=== PATIENT | male | born 1975 | race Caucasian/White ===

== ENCOUNTER → 2016-09-14 | Outpatient (REF) | payer BC ==
[2016-09-14 11:42] LABS: ALBUMIN 3.5 GM/DL (3.2-5.2); ALBUMIN/GLOBULIN RATIO 1.06 (1.00-1.93); ALKALINE PHOSPHATASE 51 U/L (45-117); ALT/SGPT 27 U/L (12-78); ANION GAP 4 MEQ/L (8-16); AST/SGOT 16 U/L (15-37); BILIRUBIN,TOTAL 0.3 MG/DL (0.2-1.0); BLOOD UREA NITROGEN 18 MG/DL (7-18); CALCIUM LEVEL 8.7 MG/DL (8.5-10.1); CARBON DIOXIDE LEVEL 32 MEQ/L (21-32); CHLORIDE LEVEL 109 MEQ/L (98-107); CHOLESTEROL LEVEL 205 MG/DL (<200); CREATININE FOR GFR 1.03 MG/DL (0.70-1.30); GLOMERULAR FILTRATION RATE > 60.0 (>60); GLUCOSE, FASTING 75 MG/DL (70-105); SODIUM LEVEL 145 MEQ/L (136-145); TOTAL PROTEIN 6.8 GM/DL (6.4-8.2); TRIGLYCERIDES LEVEL 150 MG/DL (<150)
[2016-09-14 11:45] LABS: POTASSIUM SERUM 5.3 MEQ/L (3.5-5.1)
== END ==
LOC: M SFHCPLAZ 08:41
PROVIDERS: ATTEND Physician Assistant
DX: I10 Essential (primary) hypertension (principal); E78.5 Hyperlipidemia, unspecified

== ENCOUNTER → 2017-06-07 | Outpatient (REF) | payer OTHER ==
[2017-06-07 12:03] LABS: APPEARANCE, URINE CLEAR (CLEAR); BACTERIA, URINE AUTO NEGATIVE (NEGATIVE); BILIRUBIN, URINE AUTO NEGATIVE (NEGATIVE); BLOOD, URINE BLOOD 1+ (NEGATIVE); COLOR, URINE YELLOW (YELLOW); GLUCOSE, URINE (UA) AUTO NEGATIVE (NEGATIVE); KETONE, URINE AUTO NEGATIVE (NEGATIVE); LEUKOCYTE ESTERASE, URINE AUTO NEGATIVE (NEGATIVE); MUCUS, URINE SMALL (NEGATIVE); NITRITE, URINE AUTO NEGATIVE (NEGATIVE); PROTEIN, URINE AUTO NEGATIVE (NEGATIVE); RBC, URINE AUTO 4 /HPF (0-3); SPECIFIC GRAVITY URINE AUTO 1.018 (1.002-1.035); SQUAMOUS EPITHELIAL CELL UR AU 1 /HPF (0-6); UROBILINOGEN, URINE AUTO 0.2 mg/dL (0.0-2.0); WBC, URINE AUTO 1 /HPF (0-3)
[2017-06-07 12:34] LABS: ANION GAP 6 MEQ/L (8-16); BLOOD UREA NITROGEN 16 MG/DL (7-18); CALCIUM LEVEL 8.5 MG/DL (8.5-10.1); CARBON DIOXIDE LEVEL 29 MEQ/L (21-32); CHLORIDE LEVEL 107 MEQ/L (98-107); GLOMERULAR FILTRATION RATE > 60.0 (>60); GLUCOSE, FASTING 83 MG/DL (70-100); POTASSIUM SERUM 4.6 MEQ/L (3.5-5.1); SODIUM LEVEL 142 MEQ/L (136-145)
[2017-06-07 12:38] LABS: ESTIMATED AVERAGE GLUCOSE 114 MG/DL (60-110); HEMOGLOBIN A1c 5.6 %
== END ==
LOC: M SFHCPLAZ 07:54
DX: E66.01 Morbid (severe) obesity due to excess calories (principal); I10 Essential (primary) hypertension; R89.9 Unspecified abnormal finding in specimens from other organs, systems and tissues

== ENCOUNTER → 2017-06-28 | Outpatient (CLI) | payer OTHER ==
[2017-06-28 16:58] LABS: PROTHROMBIN TIME 15.5 SECONDS (12.4-14.5)
== END ==
LOC: M WUC 14:52
DX: I26.09 Other pulmonary embolism with acute cor pulmonale (principal); I82.432 Acute embolism and thrombosis of left popliteal vein
CPT/HCPCS: 85610

== ENCOUNTER → 2017-07-09 | Outpatient (CLI) | payer OTHER ==
[2017-07-09 17:21] LABS: INR 1.58; PROTHROMBIN TIME 19.3 SECONDS (12.4-14.5)
== END ==
LOC: M WUC 10:54
DX: I26.09 Other pulmonary embolism with acute cor pulmonale (principal); I82.432 Acute embolism and thrombosis of left popliteal vein
CPT/HCPCS: 85610

== ENCOUNTER → 2017-07-19 | Outpatient (CLI) | payer OTHER ==
[2017-07-19 17:18] LABS: INR 1.63; PROTHROMBIN TIME 19.8 SECONDS (12.4-14.5)
== END ==
LOC: M WUC 15:25
DX: I26.09 Other pulmonary embolism with acute cor pulmonale (principal); I82.432 Acute embolism and thrombosis of left popliteal vein

== ENCOUNTER → 2017-07-19 | Outpatient (CLI) | payer OTHER ==
[2017-07-19 17:22] LABS: ANION GAP 4 MEQ/L (8-16); BLOOD UREA NITROGEN 20 MG/DL (7-18); CALCIUM LEVEL 9.2 MG/DL (8.5-10.1); CARBON DIOXIDE LEVEL 31 MEQ/L (21-32); CHLORIDE LEVEL 107 MEQ/L (98-107); CREATININE FOR GFR 1.05 MG/DL (0.70-1.30); GLOMERULAR FILTRATION RATE > 60.0 (>60); GLUCOSE, FASTING 84 MG/DL (70-100); SODIUM LEVEL 142 MEQ/L (136-145)
[2017-07-19 17:46] LABS: BASO % 0.5 % (0.0-1.0); EOS # 0.2 10^3/uL (0.0-0.50); HEMATOCRIT 45.8 % (42.0-52.0); HEMOGLOBIN 15.5 g/dl (14.0-18.0); IMMATURE GRANULOCYTE % 0.4 % (0-3.0); LYMPH # 1.8 10^3/uL (1.5-4.5); MEAN CORPUSCULAR HGB CONC 33.8 g/dl (32.0-36.5); MEAN CORPUSCULAR VOLUME 88.6 fl (80.0-96.0); MONO # 0.5 10^3/uL (0.0-0.8); MONO % 6.9 % (0.0-5.0); NEUTROPHILS # 4.8 10^3/uL (1.8-7.7); NEUTROPHILS % 65.2 % (36.0-66.0); PLATELET COUNT, AUTOMATED 237 10^3/uL (150-450); RED BLOOD COUNT 5.17 10^6/uL (4.30-6.10); WHITE BLOOD COUNT 7.4 10^3/uL (4.0-10.0)
== END ==
LOC: M WUC 15:29
DX: I26.99 Other pulmonary embolism without acute cor pulmonale (principal)

== ENCOUNTER → 2017-07-26 | Outpatient (CLI) | payer OTHER ==
[2017-07-26 18:50] LABS: INR 1.63; PROTHROMBIN TIME 19.8 SECONDS (12.4-14.5)
== END ==
LOC: M WUC 11:29
DX: I26.09 Other pulmonary embolism with acute cor pulmonale (principal); I82.432 Acute embolism and thrombosis of left popliteal vein
CPT/HCPCS: 85610

== ENCOUNTER → 2017-08-11 | Outpatient (CLI) | payer OTHER | LOC: M RAD 12:52 | DX: M79.605 Pain in left leg (principal); Z86.711 Personal history of pulmonary embolism; Z86.718 Personal history of other venous thrombosis and embolism | CPT/HCPCS: 93971 ==

== ENCOUNTER → 2017-08-16 | Outpatient (CLI) | payer OTHER ==
[2017-08-16 15:32] LABS: INR 1.94; PROTHROMBIN TIME 22.8 SECONDS (12.4-14.5)
== END ==
LOC: M WUC 11:25
DX: I26.09 Other pulmonary embolism with acute cor pulmonale (principal); I82.432 Acute embolism and thrombosis of left popliteal vein

== ENCOUNTER → 2017-08-23 | Outpatient (CLI) | payer OTHER ==
[2017-08-23 16:53] LABS: INR 1.25; PROTHROMBIN TIME 15.9 SECONDS (12.4-14.5)
== END ==
LOC: M WUC 11:56
DX: I26.09 Other pulmonary embolism with acute cor pulmonale (principal); I82.432 Acute embolism and thrombosis of left popliteal vein
CPT/HCPCS: 85610

== ENCOUNTER → 2017-08-30 | Outpatient (CLI) | payer OTHER ==
[2017-08-30 12:41] LABS: PROTHROMBIN TIME 16.4 SECONDS (12.4-14.5)
== END ==
LOC: M WUC 09:40
DX: I26.09 Other pulmonary embolism with acute cor pulmonale (principal)

== ENCOUNTER → 2017-09-13 | Outpatient (CLI) | payer OTHER ==
[2017-09-13 11:41] LABS: INR 1.68; PROTHROMBIN TIME 20.3 SECONDS (12.4-14.5)
== END ==
LOC: M WUC 09:52
DX: Z51.81 Encounter for therapeutic drug level monitoring (principal); Z79.01 Long term (current) use of anticoagulants; I26.09 Other pulmonary embolism with acute cor pulmonale; I82.432 Acute embolism and thrombosis of left popliteal vein
CPT/HCPCS: 85610

== ENCOUNTER → 2017-09-21 | Outpatient (CLI) | payer OTHER ==
[2017-09-21 12:46] LABS: PROTHROMBIN TIME 20.5 SECONDS (12.4-14.5)
== END ==
LOC: M WUC 10:01
DX: Z51.81 Encounter for therapeutic drug level monitoring (principal); Z79.01 Long term (current) use of anticoagulants; I26.09 Other pulmonary embolism with acute cor pulmonale; I82.432 Acute embolism and thrombosis of left popliteal vein
CPT/HCPCS: 85610

== ENCOUNTER → 2017-10-04 | Outpatient (CLI) | payer OTHER ==
[2017-10-04 11:42] LABS: INR 1.66; PROTHROMBIN TIME 20.1 SECONDS (12.4-14.5)
== END ==
LOC: M WUC 08:59
DX: Z51.81 Encounter for therapeutic drug level monitoring (principal); Z79.01 Long term (current) use of anticoagulants; I26.09 Other pulmonary embolism with acute cor pulmonale; I82.432 Acute embolism and thrombosis of left popliteal vein
CPT/HCPCS: 85610

== ENCOUNTER → 2017-11-01 | Outpatient (CLI) | payer OTHER ==
[2017-11-01 17:54] LABS: INR 2.01; PROTHROMBIN TIME 23.2 SECONDS (12.1-14.4)
== END ==
LOC: M WUC 14:57
DX: Z51.81 Encounter for therapeutic drug level monitoring (principal); Z79.01 Long term (current) use of anticoagulants; I26.09 Other pulmonary embolism with acute cor pulmonale; I82.432 Acute embolism and thrombosis of left popliteal vein
CPT/HCPCS: 85610

== ENCOUNTER → 2017-11-11 | Outpatient (CLI) | payer OTHER | LOC: M WUC 10:28 | DX: M25.562 Pain in left knee (principal) | CPT/HCPCS: 73564 ==

== ENCOUNTER → 2017-11-11 | Outpatient (CLI) | payer OTHER ==
[2017-11-11 13:12] LABS: INR 1.54; PROTHROMBIN TIME 18.7 SECONDS (12.1-14.4)
== END ==
LOC: M WUC 10:34
DX: I26.09 Other pulmonary embolism with acute cor pulmonale (principal)
CPT/HCPCS: 85610

== ENCOUNTER → 2017-11-29 | Outpatient (CLI) | payer OTHER ==
[2017-11-29 13:03] LABS: INR 2.23; PROTHROMBIN TIME 25.1 SECONDS (12.1-14.4)
== END ==
LOC: M WUC 10:18
DX: I26.09 Other pulmonary embolism with acute cor pulmonale (principal); I82.432 Acute embolism and thrombosis of left popliteal vein; Z79.01 Long term (current) use of anticoagulants
CPT/HCPCS: 85610

== ENCOUNTER → 2018-01-31 | Outpatient (CLI) | payer OTHER | LOC: M RAD 10:29 | DX: Z86.718 Personal history of other venous thrombosis and embolism (principal); Z86.711 Personal history of pulmonary embolism | CPT/HCPCS: 93971 ==

== ENCOUNTER → 2018-01-31 | Outpatient (CLI) | payer OTHER ==
[2018-01-31 12:57] LABS: INR 1.86; PROTHROMBIN TIME 21.8 SECONDS (12.1-14.4)
== END ==
LOC: M WUC 11:13
DX: Z51.81 Encounter for therapeutic drug level monitoring (principal); Z79.01 Long term (current) use of anticoagulants; I26.09 Other pulmonary embolism with acute cor pulmonale; I82.432 Acute embolism and thrombosis of left popliteal vein
CPT/HCPCS: 85610

== ENCOUNTER → 2018-02-21 | Outpatient (CLI) | payer OTHER ==
[2018-02-21 12:54] LABS: INR 2.14; PROTHROMBIN TIME 24.3 SECONDS (12.1-14.4)
== END ==
LOC: M WUC 10:50
DX: Z86.711 Personal history of pulmonary embolism (principal)

== ENCOUNTER → 2018-02-28 | Outpatient (CLI) | payer OTHER | LOC: M WUC 14:10 | DX: Z51.81 Encounter for therapeutic drug level monitoring (principal); Z79.01 Long term (current) use of anticoagulants; Z86.711 Personal history of pulmonary embolism | CPT/HCPCS: 85610 ==

== ENCOUNTER → 2018-03-07 | Outpatient (CLI) | payer OTHER ==
[2018-03-07 17:31] LABS: INR 2.24; PROTHROMBIN TIME 25.2 SECONDS (12.1-14.4)
== END ==
LOC: M WUC 10:56
DX: Z51.81 Encounter for therapeutic drug level monitoring (principal); Z79.01 Long term (current) use of anticoagulants; Z86.711 Personal history of pulmonary embolism
CPT/HCPCS: 85610

== ENCOUNTER → 2018-03-07 | Outpatient (CLI) | payer OTHER ==
[2018-03-07 17:12] LABS: BASO % 0.5 % (0.0-1.0); EOS # 0.1 10^3/uL (0.0-0.50); EOS % 1.5 % (0.0-3.0); HEMATOCRIT 45.5 % (42.0-52.0); HEMOGLOBIN 14.7 g/dl (13.5-17.5); IMMATURE GRANULOCYTE % 0.3 % (0-3.0); LYMPH # 1.4 10^3/uL (1.5-4.5); LYMPH % 20.4 % (24.0-44.0); MEAN CORPUSCULAR HEMOGLOBIN 29.6 pg (27.0-33.0); MEAN CORPUSCULAR HGB CONC 32.3 g/dl (32.0-36.5); MEAN CORPUSCULAR VOLUME 91.5 fl (80.0-96.0); MONO # 0.5 10^3/uL (0.0-0.8); MONO % 7.3 % (0.0-5.0); NEUTROPHILS # 4.6 10^3/uL (1.8-7.7); PLATELET COUNT, AUTOMATED 231 10^3/uL (150-450); RED BLOOD COUNT 4.97 10^6/uL (4.30-6.10); RED CELL DISTRIBUTION WIDTH 12.6 % (11.5-14.5); WHITE BLOOD COUNT 6.6 10^3/uL (4.0-10.0)
[2018-03-07 17:26] LABS: ALBUMIN 3.7 GM/DL (3.2-5.2); ALBUMIN/GLOBULIN RATIO 1.06 (1.00-1.93); ALKALINE PHOSPHATASE 42 U/L (45-117); ALT/SGPT 24 U/L (12-78); ANION GAP 7 MEQ/L (8-16); AST/SGOT 13 U/L (7-37); BILIRUBIN,TOTAL 0.4 MG/DL (0.2-1.0); BLOOD UREA NITROGEN 23 MG/DL (7-18); CALCIUM LEVEL 8.4 MG/DL (8.5-10.1); CARBON DIOXIDE LEVEL 29 MEQ/L (21-32); CHLORIDE LEVEL 103 MEQ/L (98-107); CHOLESTEROL LEVEL 220 MG/DL (<200); CHOLESTEROL RISK RATIO 6.111 (<5); CREATININE FOR GFR 1.04 MG/DL (0.70-1.30); FREE T4 1.37 NG/DL (0.76-1.46); GLOMERULAR FILTRATION RATE > 60.0 (>60); GLUCOSE, FASTING 75 MG/DL (70-100); HDL CHOLESTEROL 36 MG/DL (>40); LDL CHOLESTEROL 165 MG/DL (<100); NON-HDL-C 184 MG/DL; POTASSIUM SERUM 4.5 MEQ/L (3.5-5.1); SODIUM LEVEL 139 MEQ/L (136-145); TOTAL PROTEIN 7.2 GM/DL (6.4-8.2); TRIGLYCERIDES LEVEL 94 MG/DL (<150)
== END ==
LOC: M WUC 11:00
DX: I26.99 Other pulmonary embolism without acute cor pulmonale (principal); E66.01 Morbid (severe) obesity due to excess calories
CPT/HCPCS: 84443

== ENCOUNTER → 2018-03-20 | Outpatient (CLI) | payer OTHER ==
[2018-03-20 17:32] LABS: INR 3.21; PROTHROMBIN TIME 33.6 SECONDS (12.1-14.4)
== END ==
LOC: M WUC 10:15
DX: Z86.711 Personal history of pulmonary embolism (principal); Z79.01 Long term (current) use of anticoagulants
CPT/HCPCS: 85610

== ENCOUNTER → 2018-03-23 | Outpatient (CLI) | payer OTHER | LOC: M SMT 14:20 | DX: J12.9 Viral pneumonia, unspecified (principal) | CPT/HCPCS: 71046 ==

== ENCOUNTER → 2018-04-11 | Outpatient (CLI) | payer OTHER ==
[~2018-04-11] MED LIST: AZIT-10 PO; AZIT-12; COUM7.5T PO; IBUPOTC PO; LISI10TA4; LISI10TA4 PO; LOVE0.8I SC; NASA1SPR; VENTAER; VENTAER INH
[2018-04-11 12:51] LABS: INR 2.43; PROTHROMBIN TIME 26.9 SECONDS (12.1-14.4)
== END ==
LOC: M WUC 09:20
PROVIDERS: ATTEND Surgery Vascular Surgery
DX: Z86.711 Personal history of pulmonary embolism (principal); Z79.01 Long term (current) use of anticoagulants

== ENCOUNTER → 2018-05-02 | Outpatient (CLI) | payer OTHER ==
[2018-05-02 13:19] LABS: INR 3.37; PROTHROMBIN TIME 34.8 SECONDS (12.1-14.4)
== END ==
LOC: M WUC 09:48
PROVIDERS: ATTEND Surgery Vascular Surgery
DX: Z86.711 Personal history of pulmonary embolism (principal); Z79.01 Long term (current) use of anticoagulants

== ENCOUNTER → 2018-05-09 | Outpatient (CLI) | payer OTHER ==
[2018-05-09 12:48] LABS: INR 4.35; PROTHROMBIN TIME 42.7 SECONDS (12.1-14.4)
== END ==
LOC: M WUC 09:50
PROVIDERS: ATTEND Surgery Vascular Surgery
DX: Z51.81 Encounter for therapeutic drug level monitoring (principal); Z79.01 Long term (current) use of anticoagulants; Z86.711 Personal history of pulmonary embolism

== ENCOUNTER → 2018-05-17 | Outpatient (REF) | payer OTHER ==
[2018-05-17 12:45] LABS: INR 2.89; PROTHROMBIN TIME 30.9 SECONDS (12.1-14.4)
== END ==
LOC: M LABWUC 11:52
PROVIDERS: ATTEND Surgery Vascular Surgery
DX: Z86.711 Personal history of pulmonary embolism (principal)

== ENCOUNTER → 2018-05-30 | Outpatient (CLI) | payer OTHER ==
[2018-05-30 16:00] LABS: INR 2.69; PROTHROMBIN TIME 29.2 SECONDS (12.1-14.4)
== END ==
LOC: M WUC 10:40
PROVIDERS: ATTEND Surgery Vascular Surgery
DX: Z86.711 Personal history of pulmonary embolism (principal)

== ENCOUNTER → 2018-06-06 | Outpatient (CLI) | payer OTHER ==
[2018-06-06 13:45] LABS: BASO % 0.4 % (0.0-1.0); EOS # 0.2 10^3/uL (0.0-0.50); EOS % 2.2 % (0.0-3.0); HEMATOCRIT 44.3 % (42.0-52.0); HEMOGLOBIN 14.4 g/dl (13.5-17.5); LYMPH # 1.6 10^3/uL (1.5-4.5); LYMPH % 22.2 % (24.0-44.0); MEAN CORPUSCULAR HEMOGLOBIN 29.4 pg (27.0-33.0); MEAN CORPUSCULAR HGB CONC 32.5 g/dl (32.0-36.5); MEAN CORPUSCULAR VOLUME 90.4 fl (80.0-96.0); MONO # 0.5 10^3/uL (0.0-0.8); MONO % 7.6 % (0.0-5.0); NEUTROPHILS # 4.7 10^3/uL (1.8-7.7); NEUTROPHILS % 67.3 % (36.0-66.0); PLATELET COUNT, AUTOMATED 222 10^3/uL (150-450)
[2018-06-06 13:55] LABS: INR 3.61; PROTHROMBIN TIME 36.8 SECONDS (12.1-14.4)
[2018-06-06 14:16] LABS: ALBUMIN 3.7 GM/DL (3.2-5.2); ALT/SGPT 26 U/L (12-78); BILIRUBIN,TOTAL 0.2 MG/DL (0.2-1.0); BLOOD UREA NITROGEN 26 MG/DL (7-18); CALCIUM LEVEL 8.9 MG/DL (8.5-10.1); CARBON DIOXIDE LEVEL 30 MEQ/L (21-32); CHLORIDE LEVEL 104 MEQ/L (98-107); CHOLESTEROL LEVEL 268 MG/DL (<200); CHOLESTEROL RISK RATIO 5.153 (<5); CREATININE FOR GFR 1.06 MG/DL (0.70-1.30); FREE T4 1.08 NG/DL (0.76-1.46); GLOMERULAR FILTRATION RATE > 60.0 (>60); GLUCOSE, FASTING 85 MG/DL (70-100); HDL CHOLESTEROL 52 MG/DL (>40); LDL CHOLESTEROL 199 MG/DL (<100); NON-HDL-C 216 MG/DL; POTASSIUM SERUM 5.6 MEQ/L (3.5-5.1); SODIUM LEVEL 138 MEQ/L (136-145); TOTAL PROTEIN 7.3 GM/DL (6.4-8.2); TRIGLYCERIDES LEVEL 87 MG/DL (<150)
== END ==
LOC: M WUC 10:40
PROVIDERS: ATTEND Family Medicine
DX: I26.99 Other pulmonary embolism without acute cor pulmonale (principal); I10 Essential (primary) hypertension; E66.01 Morbid (severe) obesity due to excess calories

== ENCOUNTER → 2018-06-27 | Outpatient (CLI) | payer OTHER ==
[2018-06-27 10:45] LABS: INR 2.66; PROTHROMBIN TIME 28.9 SECONDS (12.1-14.4)
== END ==
LOC: M WUC 09:46
PROVIDERS: ATTEND Family Medicine
DX: Z51.81 Encounter for therapeutic drug level monitoring (principal); Z79.01 Long term (current) use of anticoagulants; I26.99 Other pulmonary embolism without acute cor pulmonale

== ENCOUNTER → 2018-07-18 | Outpatient (CLI) | payer OTHER ==
[2018-07-18 12:34] LABS: INR 2.64; PROTHROMBIN TIME 28.7 SECONDS (12.1-14.4)
== END ==
LOC: M WUC 09:56
PROVIDERS: ATTEND Surgery Vascular Surgery
DX: Z79.01 Long term (current) use of anticoagulants (principal); Z86.711 Personal history of pulmonary embolism

== ENCOUNTER → 2018-08-01 | Outpatient (CLI) | payer OTHER ==
[2018-08-01 12:36] LABS: INR 3.06; PROTHROMBIN TIME 32.3 SECONDS (12.1-14.4)
== END ==
LOC: M WUC 09:07
PROVIDERS: ATTEND Family Medicine
DX: I26.99 Other pulmonary embolism without acute cor pulmonale (principal); Z79.01 Long term (current) use of anticoagulants

== ENCOUNTER → 2018-10-03 | Outpatient (CLI) | payer OTHER ==
[2018-10-03 13:47] LABS: INR 3.02
== END ==
LOC: M WUC 09:56
PROVIDERS: ATTEND Family Medicine
DX: I26.99 Other pulmonary embolism without acute cor pulmonale (principal); Z79.01 Long term (current) use of anticoagulants

== ENCOUNTER → 2018-11-28 | Outpatient (CLI) | payer OTHER ==
[2018-11-28 17:51] LABS: INR 2.26; PROTHROMBIN TIME 24.8 SECONDS (11.8-14.0)
== END ==
LOC: M WUC 11:47
PROVIDERS: ATTEND Physician Assistant
DX: Z51.81 Encounter for therapeutic drug level monitoring (principal); Z79.01 Long term (current) use of anticoagulants; I26.99 Other pulmonary embolism without acute cor pulmonale

== ENCOUNTER 2018-12-08 10:25 | Inpatient (IN) | payer OTHER ==
[~2018-12-08] VITALS: Ht 185.4 cm; Wt 149.5 kg
[2018-12-08] MEDS: NS 1,000 ML IV SCH ×2 (01:13→16:08)
[2018-12-08 11:01] LABS: BASO % 0.3 % (0.0-1.0); EOS # 0.1 10^3/uL (0.0-0.50); EOS % 0.5 % (0.0-3.0); HEMATOCRIT 47.8 % (42.0-52.0); HEMOGLOBIN 15.6 g/dl (13.5-17.5); LYMPH # 1.1 10^3/uL (1.5-4.5); LYMPH % 7.3 % (24.0-44.0); MEAN CORPUSCULAR HEMOGLOBIN 30.4 pg (27.0-33.0); MEAN CORPUSCULAR HGB CONC 32.6 g/dl (32.0-36.5); MONO # 0.8 10^3/uL (0.0-0.8); MONO % 5.6 % (0.0-5.0); NEUTROPHILS # 12.7 10^3/uL (1.8-7.7); NEUTROPHILS % 85.8 % (36.0-66.0); PLATELET COUNT, AUTOMATED 240 10^3/uL (150-450); RED BLOOD COUNT 5.14 10^6/uL (4.30-6.10); WHITE BLOOD COUNT 14.8 10^3/uL (4.0-10.0)
[2018-12-08] MEDS ORDERED: WARF-22 PO (11:25)
[2018-12-08] MEDS ORDERED: WARF-21 PO (11:25)
[2018-12-08] MEDS ORDERED: ROSU20TA5 PO (11:25)
[2018-12-08 11:30] LABS: ALBUMIN 3.8 GM/DL (3.2-5.2); ALT/SGPT 44 U/L (12-78); BILIRUBIN,DIRECT 0.2 MG/DL (0.0-0.2); BILIRUBIN,TOTAL 0.6 MG/DL (0.2-1.0); BLOOD UREA NITROGEN 20 MG/DL (7-18); CARBON DIOXIDE LEVEL 31 MEQ/L (21-32); CHLORIDE LEVEL 105 MEQ/L (98-107); CREATININE FOR GFR 1.04 MG/DL (0.70-1.30); GLOMERULAR FILTRATION RATE > 60.0 (>60); GLUCOSE, FASTING 108 MG/DL (70-100); LIPASE 168 U/L (73-393); POTASSIUM SERUM 4.5 MEQ/L (3.5-5.1); SODIUM LEVEL 141 MEQ/L (136-145); TOTAL PROTEIN 7.6 GM/DL (6.4-8.2)
[2018-12-08] MEDS ORDERED: ISOVUE-370 76% 100ML VIAL (Q9967) As Ordered ONE (11:56)
[2018-12-08] MEDS ORDERED: MORPHINE 4 MG/ML 1ML VIAL/SYRINGE (J2270) IV ONE (12:00)
[2018-12-08] MEDS ORDERED: ONDANSETRON 4MG/2ML VIAL (J2405) IV ONE (12:00)
[2018-12-08] MEDS ORDERED: NS 1,000 ML IV ONE (12:00)
[2018-12-08 13:16] LABS: PROTHROMBIN TIME 31.1 SECONDS (11.8-14.0)
[2018-12-08 13:17] LABS: PARTIAL THROMBOPLASTIN TIME 58.1 SECONDS (25.0-38.4)
--- NOTE | 2018-12-08 13:57 | REP ---
REASON: Right lower quadrant pain. CONTRAST: 100 mL Isovue 370. The lung bases are and unchanged. The liver, gallbladder, spleen, pancreas, adrenal glands and kidneys are unchanged and again seen to be within normal limits. The abdominal aorta and para-aortic regions are unchanged and again seen to be within normal limits. There is a tiny amount of free fluid trapped in the leads of the small bowel mesentery. This represents a change from the prior exam. There is no evidence of free intraperitoneal air. There are a few gas-filled mildly dilated small bowel loops in the abdomen. CT PELVIS: There is sigmoid colon diverticulosis. There is diffuse fatty infiltration surrounding the long segment of sigmoid colon which represents a change from the prior exam. There is no definite evidence of free air. Dots of air density are seen adjacent to the sigmoid colon affected by the fatty infiltration likely within tiny diverticula. Certainly, slight microperforation cannot be completely ruled out. The hutton of the sigmoid colon affected by the circumferential fatty infiltration are somewhat thickened. There is no free fluid in the pelvis. There is no pelvic mass or adenopathy. Bone window technique through the examination shows the osseous structures to be within normal limits for the patient's age and essentially unchanged from the prior exam. IMPRESSION: There is sigmoid colon diverticulitis and whether or not there is concomitant minimal likely incidental microperforation cannot be stated with 100% certainty as the air densities adjacent to the wall of the sigmoid colon could be trapped within tiny diverticula. I will, however, place a phone call to the emergency department and talk to the patient's health care provider Annalisa Bowers to discuss the possibility of micro amounts of free air. Electronically Signed by Jonathan Odell DO 12/08/2018 03:45 P
[2018-12-08] MEDS ORDERED: ONDANSETRON 4MG/2ML VIAL (J2405) IV PRN (15:15)
[2018-12-08] MEDS ORDERED: ACETAMINOPHEN TAB 650MG DOSE (2X325MG) PO PRN (15:15)
[2018-12-08] MEDS ORDERED: cefTRIAXone SOD 1 GM in D5W MINI-BAG PLUS 50 ML IV ONE (15:15)
[2018-12-08] MEDS ORDERED: MORPHINE 4 MG/ML 1ML VIAL/SYRINGE (J2270) IV PRN (15:15)
[2018-12-08] MEDS ORDERED: DICL1GEL3 TOP (15:46)
[2018-12-08] MEDS ORDERED: LISI-538 PO (15:46)
[2018-12-08] MEDS ORDERED: ROSU10TA6 PO (15:46)
[2018-12-08 16:00] VITALS: BP 124/80
[2018-12-08] MEDS: MORPHINE 4 MG/ML 1ML VIAL/SYRINGE (J2270) IV PRN (16:07)
[2018-12-08] MEDS: metroNIDAZOLE 500 MG in APPROPRIATE DILUENT 1 EA IV SCH (17:06)
[2018-12-08] MEDS: CIPROFLOXACIN 400 MG in APPROPRIATE DILUENT 1 EA IV SCH (18:27)
--- NOTE | 2018-12-08 18:53 | HPE ---
DATE OF ADMISSION: 12/08/2018 BRIEF HISTORY OF PRESENT ILLNESS: The patient is a 43-year-old male who developed abdominal pain in the suprapubic area and infraumbilical area about 12 hours prior to admission. He states that this has been persistent and consistent. It has not been getting any worse but he does have some crampy abdominal pain, sharp pains. The patient has felt some chills but without fevers, without increased temperature. He has not had any diarrhea. No constipation issues. No recent gastrointestinal (GI) attacks. He did have a small bowel movement today, otherwise had not had any other complaints associated with this. He has not had any previous episodes of diverticulitis in the past. His white count is elevated. He had a CAT scan which showed peridiverticular inflammation with air that did not seem to be in a diverticulum in a very small pocket consistent with a possible microperforation in the mesentery and I was asked to see him for additional recommendations. PAST MEDICAL HISTORY: Significant for: 1. History of deep vein thrombosis (DVT) and pulmonary embolism in 2018. 2. History of bilateral ET tubes. 3. History of intestinal blockage as an . 4. History of hypertension. 5. History of hypercholesterolemia. MEDICATIONS: Include Coumadin, as-needed ibuprofen, lisinopril, and rosuvastatin. He also takes occasionally arthritis Voltaren gel. PHYSICAL EXAMINATION: Reveals a 43-year-old male who looks stated age. HEENT: Unremarkable. NECK: Supple without adenopathy. LUNGS: Clear to auscultation without crackles, wheezes or rhonchi. HEART: Regular without murmur. ABDOMEN: Soft, nontender except in the suprapubic area with some guarding without significant rebound with localized peritoneal signs consistent with the diverticulitis he has. IMPRESSION AND PLAN: The patient has localized diverticulitis and at this pont does not have free perforation. I anticipate this has relatively marked the inflammation. Either it is secondary to the significant inflammation and infection present or possibly from some hemorrhage into the mesentery associated with this infection with his anticoagulation. In any case, treatment at this time given that there is no free perforation and relatively well-localized tenderness, I feel that it is reasonable to continue him with some IV antibiotics, nothing by mouth overnight, and see how he does with IV fluids and resuscitation. Given his history of deep vein thrombosis (DVT) and pulmonary embolism (PE), we will stop his anticoagulation. However, I will not reverse it at this time. He has had no true evidence of bleeding or rectal bleeding and his hematocrit is normal on admission. We will restart his regular medications tomorrow morning, rosuvastatin, lisinopril depending on his blood pressure, etcetera, and how he does overnight.
[2018-12-08 22:00] VITALS: BP 127/81
[2018-12-09] MEDS: metroNIDAZOLE 500 MG in APPROPRIATE DILUENT 1 EA IV SCH ×3 (01:12→16:35)
[2018-12-09] MEDS: MORPHINE 4 MG/ML 1ML VIAL/SYRINGE (J2270) IV PRN ×2 (01:13→19:38)
[2018-12-09 02:00] VITALS: BP 122/82
[2018-12-09] MEDS: NS 1,000 ML IV SCH ×3 (04:26→17:46)
[2018-12-09 06:00] VITALS: BP 120/71
[2018-12-09] MEDS: CIPROFLOXACIN 400 MG in APPROPRIATE DILUENT 1 EA IV SCH ×2 (06:03→18:09)
[2018-12-09 06:42] LABS: HEMATOCRIT 43.1 % (42.0-52.0); HEMOGLOBIN 13.7 g/dl (13.5-17.5); MEAN CORPUSCULAR HEMOGLOBIN 29.6 pg (27.0-33.0); MEAN CORPUSCULAR HGB CONC 31.8 g/dl (32.0-36.5); MEAN CORPUSCULAR VOLUME 93.1 fl (80.0-96.0); PLATELET COUNT, AUTOMATED 188 10^3/uL (150-450); RED BLOOD COUNT 4.63 10^6/uL (4.30-6.10); WHITE BLOOD COUNT 13.6 10^3/uL (4.0-10.0)
[2018-12-09 07:01] LABS: BLOOD UREA NITROGEN 14 MG/DL (7-18); CALCIUM LEVEL 8.4 MG/DL (8.5-10.1); CARBON DIOXIDE LEVEL 31 MEQ/L (21-32); CHLORIDE LEVEL 104 MEQ/L (98-107); CREATININE FOR GFR 1.06 MG/DL (0.70-1.30); GLOMERULAR FILTRATION RATE > 60.0 (>60); GLUCOSE, FASTING 111 MG/DL (70-100); POTASSIUM SERUM 4.2 MEQ/L (3.5-5.1); SODIUM LEVEL 140 MEQ/L (136-145)
[2018-12-09] MEDS: KETOROLAC 30 MG/ML VIAL (J1885) IV PRN (09:32)
[2018-12-09 10:54] VITALS: BP 115/65
[2018-12-09 14:00] VITALS: BP 122/60
[2018-12-09] MEDS: PANTOPRAZOLE 40MG INJ (PROTONIX) (C9113) IV SCH (19:38)
[2018-12-09 22:00] VITALS: BP 99/55
[2018-12-10] MEDS: metroNIDAZOLE 500 MG in APPROPRIATE DILUENT 1 EA IV SCH ×3 (00:50→17:31)
[2018-12-10] MEDS: NS 1,000 ML IV SCH ×3 (00:50→16:16)
[2018-12-10 02:00] VITALS: BP 121/69
[2018-12-10] MEDS: CIPROFLOXACIN 400 MG in APPROPRIATE DILUENT 1 EA IV SCH ×2 (05:53→18:47)
[2018-12-10 06:00] VITALS: BP 118/65
[2018-12-10 07:03] LABS: HEMATOCRIT 39.7 % (42.0-52.0); HEMOGLOBIN 12.9 g/dl (13.5-17.5); MEAN CORPUSCULAR HEMOGLOBIN 30.1 pg (27.0-33.0); MEAN CORPUSCULAR HGB CONC 32.5 g/dl (32.0-36.5); MEAN CORPUSCULAR VOLUME 92.5 fl (80.0-96.0); PLATELET COUNT, AUTOMATED 161 10^3/uL (150-450); RED BLOOD COUNT 4.29 10^6/uL (4.30-6.10); WHITE BLOOD COUNT 11.5 10^3/uL (4.0-10.0)
[2018-12-10 07:28] LABS: BLOOD UREA NITROGEN 15 MG/DL (7-18); CALCIUM LEVEL 7.9 MG/DL (8.5-10.1); CARBON DIOXIDE LEVEL 26 MEQ/L (21-32); CHLORIDE LEVEL 108 MEQ/L (98-107); CREATININE FOR GFR 0.92 MG/DL (0.70-1.30); GLOMERULAR FILTRATION RATE > 60.0 (>60); GLUCOSE, FASTING 110 MG/DL (70-100); POTASSIUM SERUM 3.6 MEQ/L (3.5-5.1); SODIUM LEVEL 139 MEQ/L (136-145)
--- NOTE | 2018-12-10 09:20 | IPNPDOC ---
Text Note Date of Service The patient was seen on 12/10/18. NOTE No acute events overnight. Pain is still present, but it is improved. No comp laints of nausea, emesis, or chills, but he did have a slight fever overnight. Tmax - 101 Tc - 98.6 NAD abd - soft, TTP lower quadrants only, no rebound or guarding labs - wbc - 13.6>11.5 A) 43y/o male with first episode of noncomplicated diverticulitis P) clear liquid diet abx ambulate plan on advancing diet tomorrow, and possible d/c home Miki Pham DO VS,[place], I+O VS, [place], I+O Laboratory Tests 12/10/18 06:44 Red Blood Count 4.29 L, Mean Corpuscular Volume 92.5, Mean Corpuscular Hemoglobin 30.1, Mean Corpuscular Hemoglobin Concent 32.5, Red Cell Distribution Width 13.2, Calcium Level 7.9 L Vital Signs Date Time Temp Pulse Resp B/P (MAP) Pulse Ox O2 Delivery O2 Flow Rate FiO2 12/10/18 06:00 98.6 93 18 118/65 (82) 96 12/08/18 15:27 Room Air I&O- Last 24 Hours up to 6 AM 12/10/18 06:00 Intake Total 5862 ml Balance 5862 ml SOLEDAD PHAM DO Dec 10, 2018 09:20
[2018-12-10 10:00] VITALS: BP 132/75
[2018-12-10 14:00] VITALS: BP 136/76
[2018-12-10 18:00] VITALS: BP 138/75
[2018-12-10] MEDS: KETOROLAC 30 MG/ML VIAL (J1885) IV PRN (18:54)
[2018-12-10 22:00] VITALS: BP 141/73
[2018-12-10] MEDS: PANTOPRAZOLE 40MG INJ (PROTONIX) (C9113) IV SCH (22:45)
[2018-12-11] MEDS: metroNIDAZOLE 500 MG in APPROPRIATE DILUENT 1 EA IV SCH ×2 (00:33→08:35)
[2018-12-11] MEDS: NS 1,000 ML IV SCH ×2 (00:33→08:35)
[2018-12-11 02:00] VITALS: BP 138/73
[2018-12-11] MEDS: CIPROFLOXACIN 400 MG in APPROPRIATE DILUENT 1 EA IV SCH (05:35)
[2018-12-11 06:00] VITALS: BP 147/78
[2018-12-11 06:26] LABS: HEMATOCRIT 35.7 % (42.0-52.0); HEMOGLOBIN 11.8 g/dl (13.5-17.5); MEAN CORPUSCULAR HEMOGLOBIN 29.9 pg (27.0-33.0); MEAN CORPUSCULAR HGB CONC 33.1 g/dl (32.0-36.5); MEAN CORPUSCULAR VOLUME 90.4 fl (80.0-96.0); PLATELET COUNT, AUTOMATED 178 10^3/uL (150-450); RED BLOOD COUNT 3.95 10^6/uL (4.30-6.10); WHITE BLOOD COUNT 7.9 10^3/uL (4.0-10.0)
[2018-12-11 06:50] LABS: BLOOD UREA NITROGEN 13 MG/DL (7-18); CALCIUM LEVEL 7.5 MG/DL (8.5-10.1); CARBON DIOXIDE LEVEL 30 MEQ/L (21-32); CHLORIDE LEVEL 108 MEQ/L (98-107); CREATININE FOR GFR 0.92 MG/DL (0.70-1.30); GLOMERULAR FILTRATION RATE > 60.0 (>60); GLUCOSE, FASTING 114 MG/DL (70-100); POTASSIUM SERUM 3.7 MEQ/L (3.5-5.1); SODIUM LEVEL 142 MEQ/L (136-145)
[2018-12-11 10:00] VITALS: BP 146/89
[2018-12-11] MEDS ORDERED: METR-265 PO (11:42)
[2018-12-11] MEDS ORDERED: CIPR500T3 PO (11:42)
== END 2018-12-11 14:10 | disposition home or self-care (01) | DRG 244 ==
LOC: M ED 10:25 → M ED INP 15:06 → M MSPAV 15:45
PROVIDERS: ADMIT Surgery; ATTEND Surgery
DX: K57.30 Diverticulosis of large intestine without perforation or abscess without bleeding (principal); I10 Essential (primary) hypertension; E78.00 Pure hypercholesterolemia, unspecified; Z79.01 Long term (current) use of anticoagulants

== ENCOUNTER → 2019-01-09 | Outpatient (CLI) | payer OTHER ==
[~2019-01-09] MED LIST changes: +CIPR500T3 PO; +DICL1GEL3 TOP; +LISI-538 PO; +METR-265 PO; +ROSU10TA6 PO; +ROSU20TA5 PO; +WARF-21 PO; +WARF-22 PO
[2019-01-09 14:13] LABS: INR 2.61; PROTHROMBIN TIME 27.8 SECONDS (11.8-14.0)
== END ==
LOC: M WUC 09:34
PROVIDERS: ATTEND Physician Assistant
DX: I26.99 Other pulmonary embolism without acute cor pulmonale (principal)

== ENCOUNTER → 2019-05-29 | Outpatient (REF) | payer OTHER ==
[2019-05-29 13:44] LABS: BASO % 0.5 % (0.0-1.0); EOS # 0.1 10^3/uL (0.0-0.5); EOS % 1.8 % (0.0-3.0); HEMATOCRIT 47.9 % (42.0-52.0); HEMOGLOBIN 15.2 g/dl (13.5-17.5); LYMPH # 1.2 10^3/uL (1.5-5.0); LYMPH % 17.6 % (24.0-44.0); MEAN CORPUSCULAR HEMOGLOBIN 29.1 pg (27.0-33.0); MEAN CORPUSCULAR HGB CONC 31.7 g/dl (32.0-36.5); MEAN CORPUSCULAR VOLUME 91.8 fl (80.0-96.0); MONO # 0.4 10^3/uL (0.0-0.8); MONO % 6.1 % (0.0-5.0); NEUTROPHILS # 4.8 10^3/uL (1.5-8.5); NEUTROPHILS % 73.7 % (36.0-66.0); PLATELET COUNT, AUTOMATED 238 10^3/uL (150-450); RED BLOOD COUNT 5.22 10^6/uL (4.30-6.10); WHITE BLOOD COUNT 6.5 10^3/uL (4.0-10.0)
[2019-05-29 13:47] LABS: BLOOD UREA NITROGEN 22 MG/DL (7-18); CALCIUM LEVEL 8.9 MG/DL (8.5-10.1); CARBON DIOXIDE LEVEL 31 MEQ/L (21-32); CHLORIDE LEVEL 103 MEQ/L (98-107); CREATININE FOR GFR 1.02 MG/DL (0.70-1.30); GLOMERULAR FILTRATION RATE > 60.0 (>60); GLUCOSE, FASTING 92 MG/DL (70-100); INR 2.09; POTASSIUM SERUM 4.8 MEQ/L (3.5-5.1); PROTHROMBIN TIME 23.3 SECONDS (11.8-14.0); SODIUM LEVEL 139 MEQ/L (136-145)
== END ==
LOC: M LABDRAW1 12:38
PROVIDERS: ATTEND Physician Assistant
DX: R10.31 Right lower quadrant pain (principal); I26.99 Other pulmonary embolism without acute cor pulmonale

== ENCOUNTER → 2020-05-09 | Outpatient (REF) | payer BC ==
[~2020-05-09] MED LIST changes: -COUM7.5T PO; +COUM7.5T6 PO
[2020-05-09 11:40] LABS: BASO # 0.1 10^3/uL (0.0-0.2); BASO % 0.7 % (0.0-1.0); EOS # 0.1 10^3/uL (0.0-0.5); EOS % 1.2 % (0.0-3.0); HEMATOCRIT 49.2 % (42.0-52.0); HEMOGLOBIN 15.5 g/dl (13.5-17.5); LYMPH # 1.3 10^3/uL (1.5-5.0); LYMPH % 17.5 % (24.0-44.0); MEAN CORPUSCULAR HGB CONC 31.5 g/dl (32.0-36.5); MEAN CORPUSCULAR VOLUME 92.1 fl (80.0-96.0); MONO # 0.4 10^3/uL (0.0-0.8); MONO % 5.4 % (0.0-5.0); NEUTROPHILS # 5.7 10^3/uL (1.5-8.5); NEUTROPHILS % 74.8 % (36.0-66.0); PLATELET COUNT, AUTOMATED 234 10^3/uL (150-450); RED BLOOD COUNT 5.34 10^6/uL (4.30-6.10); WHITE BLOOD COUNT 7.6 10^3/uL (4.0-10.0)
[2020-05-09 12:03] LABS: INR 2.34; PROTHROMBIN TIME 26.2 SECONDS (12.5-14.3)
== END ==
LOC: M LABDRAWC 11:12 → M LABWUC 11:12
PROVIDERS: ATTEND Physician Assistant
DX: I26.99 Other pulmonary embolism without acute cor pulmonale (principal); E66.01 Morbid (severe) obesity due to excess calories; I10 Essential (primary) hypertension

== ENCOUNTER → 2020-06-27 | Outpatient (CLI) | payer BC ==
[~2020-06-27] MED LIST changes: -LISI-538 PO; +LISI10TA22; +LISI10TA22 PO; -LISI10TA4; -LISI10TA4 PO; +LISI20TA33 PO
[2020-06-27 12:35] LABS: PROTHROMBIN TIME 23.1 SECONDS (12.5-14.3)
[2020-06-27 12:46] LABS: ALBUMIN 4.1 GM/DL (3.2-5.2); ALT/SGPT 31 U/L (12-78); BILIRUBIN,TOTAL 0.4 MG/DL (0.2-1.0); BLOOD UREA NITROGEN 20 MG/DL (7-18); CALCIUM LEVEL 9.1 MG/DL (8.5-10.1); CARBON DIOXIDE LEVEL 29 MEQ/L (21-32); CHLORIDE LEVEL 106 MEQ/L (98-107); CHOLESTEROL LEVEL 157 MG/DL (<200); CHOLESTEROL RISK RATIO 3.651 (<5); FREE T4 1.32 NG/DL (0.76-1.46); GLOMERULAR FILTRATION RATE > 60.0 (>60); GLUCOSE, FASTING 96 MG/DL (70-100); HDL CHOLESTEROL 43 MG/DL (>40); LDL CHOLESTEROL 93 MG/DL (<100); NON-HDL-C 114 MG/DL; POTASSIUM SERUM 4.5 MEQ/L (3.5-5.1); SODIUM LEVEL 139 MEQ/L (136-145); TOTAL PROTEIN 7.5 GM/DL (6.4-8.2); TRIGLYCERIDES LEVEL 103 MG/DL (<150)
== END ==
LOC: M WUC 09:46
PROVIDERS: ATTEND Physician Assistant
DX: I26.99 Other pulmonary embolism without acute cor pulmonale (principal); I10 Essential (primary) hypertension

== ENCOUNTER → 2020-08-05 | Outpatient (CLI) | payer BC ==
--- NOTE | 2020-08-05 12:53 | REPPI ---
INDICATION: ACHILLES TENDINITIS, RIGHT LEG. COMPARISON: None. TECHNIQUE: FOUR VIEWS FINDINGS: No acute fracture or destructive osseous lesion. The mortise is intact. LARGE PLANTAR AND RETROCALCANEAL HEEL SPURS ARE PRESENT. There is a large os trigonum. IMPRESSION: Chronic changes. If tendonitis is of clinical concern then consider follow-up with MRI. <Electronically signed by Jonathan Odell > 08/05/20 [id number]
== END ==
LOC: M PLAIMG 12:03
PROVIDERS: ATTEND Physician Assistant
DX: M76.61 Achilles tendinitis, right leg (principal); M77.31 Calcaneal spur, right foot

== ENCOUNTER → 2020-11-07 | Outpatient (CLI) | payer BC ==
[2020-11-07 10:31] LABS: INR 2.03; PROTHROMBIN TIME 23.4 SECONDS (12.5-14.3)
== END ==
LOC: M WUC 08:19
PROVIDERS: ATTEND Physician Assistant
DX: I26.99 Other pulmonary embolism without acute cor pulmonale (principal)

== ENCOUNTER 2020-12-06 21:11 | Emergency (ER) | payer BC ==
[~2020-12-06] VITALS: Ht 185.4 cm; Wt 173.7 kg
[2020-12-07] MEDS ORDERED: NS 1,000 ML IV ONE (02:35)
[2020-12-07 03:51] LABS: BASO % 0.4 % (0.0-1.0); EOS # 0.2 10^3/uL (0.0-0.5); EOS % 3.1 % (0.0-3.0); HEMATOCRIT 41.9 % (42.0-52.0); HEMOGLOBIN 13.6 g/dl (13.5-17.5); LYMPH # 1.6 10^3/uL (1.5-5.0); LYMPH % 23.9 % (24.0-44.0); MEAN CORPUSCULAR HEMOGLOBIN 29.7 pg (27.0-33.0); MEAN CORPUSCULAR HGB CONC 32.5 g/dl (32.0-36.5); MEAN CORPUSCULAR VOLUME 91.5 fl (80.0-96.0); MONO # 0.5 10^3/uL (0.0-0.8); MONO % 6.9 % (2.0-8.0); NEUTROPHILS # 4.5 10^3/uL (1.5-8.5); NEUTROPHILS % 65.4 % (36.0-66.0); PLATELET COUNT, AUTOMATED 190 10^3/uL (150-450); RED BLOOD COUNT 4.58 10^6/uL (4.30-6.10); WHITE BLOOD COUNT 6.8 10^3/uL (4.0-10.0)
[2020-12-07 04:05] LABS: INR 1.08; PROTHROMBIN TIME 14.4 SECONDS (12.7-14.5)
[2020-12-07 04:06] LABS: PARTIAL THROMBOPLASTIN TIME 33.2 SECONDS (25.9-37.0)
[2020-12-07 04:20] LABS: ALBUMIN 3.7 GM/DL (3.2-5.2); ALT/SGPT 25 U/L (12-78); BILIRUBIN,DIRECT 0.1 MG/DL (0.0-0.2); BILIRUBIN,TOTAL 0.4 MG/DL (0.2-1.0); BLOOD UREA NITROGEN 28 MG/DL (7-18); CARBON DIOXIDE LEVEL 27 MEQ/L (21-32); CHLORIDE LEVEL 105 MEQ/L (98-107); CREATININE FOR GFR 1.11 MG/DL (0.70-1.30); GLOMERULAR FILTRATION RATE > 60.0 (>60); GLUCOSE, FASTING 90 MG/DL (70-100); LIPASE 92 U/L (73-393); POTASSIUM SERUM 4.2 MEQ/L (3.5-5.1); SODIUM LEVEL 137 MEQ/L (136-145); TOTAL PROTEIN 7.1 GM/DL (6.4-8.2)
[2020-12-07] MEDS ORDERED: METHOCARBAMOL 1,000 MG/10 ML VIAL (J2800) IV ONE (05:00)
--- NOTE | 2020-12-07 06:57 | REPVR ---
PROCEDURE INFORMATION: Exam: CT Abdomen And Pelvis Without Contrast Exam date and time: 12/07/2020 4:56 AM Age: 45 years old Clinical indication: Abdominal pain; Flank; Left; Additional info: Left flank pain, hematuria TECHNIQUE: Imaging protocol: Computed tomography of the abdomen and pelvis without contrast. Radiation optimization: All CT scans at this facility use at least one of these dose optimization techniques: automated exposure control; mA and/or kV adjustment per patient size (includes targeted exams where dose is matched to clinical indication); or iterative reconstruction. COMPARISON: 1. CT ABD/PEL W/IV CONTRAST ONLY 2018-12-08 11:[address] ANGIO CHEST 2017-06-18 05:01 FINDINGS: Limitations: Study is limited by the absence of contrast. Limited by patient's body habitus. Mediastinal space: Small gastroesophageal sliding type hiatal hernia. Liver: Normal. No mass. Gallbladder and bile ducts: Normal. No calcified stones. No ductal dilation. Pancreas: Normal. No ductal dilation. Spleen: Normal. No splenomegaly. Adrenal glands: Normal. No mass. Kidneys and ureters: Mild renal cortical atrophy. Stomach and bowel: Constipation. Appendix: No evidence of appendicitis. Intraperitoneal space: Unremarkable. No free air. No significant fluid collection. Vasculature: Unremarkable. No abdominal aortic aneurysm. Lymph nodes: Unremarkable. No enlarged lymph nodes. Urinary bladder: Unremarkable as visualized. Reproductive: Unremarkable as visualized. 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 Soft tissues: Unremarkable. IMPRESSION: No urolithiasis. Electronically signed by: Gagandeep Molina On 12/07/2020 06:57:20 AM
[2020-12-07] MEDS ORDERED: XARE10TA PO (07:10)
[2020-12-07] MEDS ORDERED: METH-1165 PO (07:15)
[2020-12-07 07:21] VITALS: BP 119/78
== END 2020-12-07 07:26 | disposition home or self-care (01) ==
LOC: M ED 21:11
DX: M54.5 Low back pain (principal); I10 Essential (primary) hypertension; Z86.711 Personal history of pulmonary embolism; Z87.19 Personal history of other diseases of the digestive system; Z79.899 Other long term (current) drug therapy
CPT/HCPCS: 74176; 80048; 80076; 81001; 83690; 85025; 85610; 85730; 93041; 96361; 96374; 99285; J2800

== ENCOUNTER → 2020-12-14 | Outpatient (CLI) | payer BC ==
[~2020-12-14] MED LIST changes: +METH-1165 PO; +XARE10TA PO
== END ==
LOC: M LABSMTC 09:06
PROVIDERS: ATTEND Anesthesiology
DX: Z01.812 Encounter for preprocedural laboratory examination (principal); Z20.822 Contact with and (suspected) exposure to COVID-19

== ENCOUNTER 2020-12-19 10:19 | Day surgery (SDC) | payer BC ==
[~2020-12-19] VITALS: Ht 185.4 cm; Wt 169.2 kg
[~2020-12-19 10:19] MED LIST changes: +NS 1,000 ML IV ONE
[2020-12-19] MEDS ORDERED: LIDOCAINE 2% 100MG/5ML SDV (FOR ANES.) As Ordered ONE (11:38)
[2020-12-19] MEDS ORDERED: propofoL 200 MG/20 ML VIAL As Ordered ONE (11:38)
--- NOTE | 2020-12-19 12:06 | ROOR ---
Patient Name: Raheem Barnes Procedure Date: 12/19/2020 11:46 AM Date of : 1975 Age: 45 Room: [facility] Gender: Male Note Status: Finalized Procedure: Colonoscopy Indications: Suspected diverticulitis Providers: Markus Diaz Jr, MD Referring MD: So ERIC DO Requesting Provider: Medicines: Propofol per Anesthesia Complications: No immediate complications. Procedure: Pre-Anesthesia Assessment: - Prior to the procedure, a History and Physical was performed, and patient medications and allergies were reviewed. The patient is competent. The risks and benefits of the procedure and the sedation options and risks were discussed with the patient. All questions were answered and informed consent was obtained. Patient identification and proposed procedure were verified by the physician and the nurse in the pre-procedure area and in the procedure room. Mental Status Examination: alert and oriented. Airway Examination: normal oropharyngeal airway and neck mobility. Respiratory Examination: clear to auscultation. CV Examination: normal. ASA Grade Assessment: II - A patient with mild systemic disease. After reviewing the risks and benefits, the patient was deemed in satisfactory condition to undergo the procedure. The anesthesia plan was to use moderate sedation / analgesia (conscious sedation). Immediately prior to administration of medications, the patient was re-assessed for adequacy to receive sedatives. The heart rate, respiratory rate, oxygen saturations, blood pressure, adequacy of pulmonary ventilation, and response to care were monitored throughout the procedure. The physical status of the patient was re-assessed after the procedure. The Colonoscope was introduced through the anus and advanced to the cecum, identified by appendiceal orifice and ileocecal valve. The patient tolerated the procedure well. The patient tolerated the procedure well. The colonoscopy was performed without difficulty. Findings: The rectum, recto-sigmoid colon, descending colon, transverse colon, ascending colon, cecum, appendiceal orifice and ileocecal valve appeared normal. Multiple small and large-mouthed diverticula were found in the sigmoid colon. Impression: - The rectum, recto-sigmoid colon, descending colon, transverse colon, ascending colon, cecum, appendiceal orifice and ileocecal valve are normal. - Diverticulosis in the sigmoid colon. - No specimens collected. Recommendation: - Discharge patient to home (ambulatory). - Repeat colonoscopy in 10 years for screening purposes. Procedure Code(s): --- Professional --- 32032, Colonoscopy, flexible; diagnostic, including collection of specimen(s) by brushing or washing, when performed (separate procedure) Diagnosis Code(s): --- Professional --- K57.30, Diverticulosis of large intestine without perforation or abscess without bleeding CPT copyright 2019 [employer]. All rights reserved. The codes documented in this report are preliminary and upon personal trainer review may be revised to meet current compliance requirements. Markus Diaz MD Markus Diaz Jr, MD 12/19/2020 12:06:40 PM Electronically signed by Markus Diaz Jr, MD Number of Addenda: 0 Note Initiated On: 12/19/2020 11:46 AM Estimated Blood Loss: Estimated blood loss: none.
[2020-12-19 12:25] VITALS: BP 143/85
== END 2020-12-19 12:39 | disposition home or self-care (01) ==
LOC: M OPP 10:19
PROVIDERS: ATTEND Surgery
DX: K57.30 Diverticulosis of large intestine without perforation or abscess without bleeding (principal); Z79.01 Long term (current) use of anticoagulants; Z79.899 Other long term (current) drug therapy

== ENCOUNTER → 2020-12-21 | Outpatient (CLI) | payer BC ==
[~2020-12-21] MED LIST changes: -NS 1,000 ML IV ONE
--- NOTE | 2020-12-22 21:44 | REPVR ---
PROCEDURE INFORMATION: Exam: MR Lumbar Spine Without Contrast Exam date and time: 12/21/2020 4:16 PM Age: 45 years old Clinical indication: Pain; Lumbago with sciatica; Bilateral TECHNIQUE: Imaging protocol: Multiplanar magnetic resonance images of the lumbar spine without intravenous contrast. COMPARISON: CT ABD PELVIS W/O CONTRAST 12/07/2020 5:02 AM FINDINGS: Vertebral body heights are maintained. Mild Modic type 1 edematous degenerative endplate change posteriorly at L4-L5. No cord compression. No abnormal cord signal. Conus medullaris terminates at the L1 level. Paravertebral soft tissues are unremarkable. L1-L2: No significant canal or foraminal narrowing. L2-L3: No significant canal or foraminal narrowing. L3-L4: Left foraminal disc protrusion causing mild left foraminal narrowing. No significant canal narrowing. L4-L5: Broad-based disc bulge causes mild bilateral foraminal narrowing. No significant canal narrowing. L5-S1: Small central disc protrusion superimposed over broad-based disc bulge causing mild canal narrowing and slight effacement of the left lateral recess. Along with mild bilateral facet arthropathy there is mild right and [id number]-ch-dlrtupgi left foraminal narrowing. IMPRESSION: Multilevel spondylotic changes of the lumbar spine, as detailed above. Electronically signed by: Ba Guzman On 12/22/2020 21:43:52 PM
== END ==
LOC: M RAD 14:45
PROVIDERS: ATTEND Physician Assistant
DX: M54.42 Lumbago with sciatica, left side (principal); M51.26 Other intervertebral disc displacement, lumbar region; M47.816 Spondylosis without myelopathy or radiculopathy, lumbar region

== ENCOUNTER → 2021-07-11 | Outpatient (CLI) | payer BC ==
[2021-07-11 12:45] LABS: INR 1.68; PROTHROMBIN TIME 20.2 SECONDS (12.7-14.5)
== END ==
LOC: M WUC 08:40
PROVIDERS: ATTEND Physician Assistant
DX: Z79.01 Long term (current) use of anticoagulants (principal)

== ENCOUNTER → 2022-05-01 | Outpatient (CLI) | payer BC | LOC: M SLEEP 20:00 | PROVIDERS: ATTEND Physician Assistant | DX: G47.33 Obstructive sleep apnea (adult) (pediatric) (principal) ==

== ENCOUNTER → 2022-07-29 | Outpatient (CLI) | payer BC ==
[2022-07-29 17:20] LABS: BASO % 0.4 % (0.0-1.0); EOS # 0.2 10^3/uL (0.0-0.5); HEMATOCRIT 43.7 % (42.0-52.0); LYMPH # 1.7 10^3/uL (1.5-5.0); LYMPH % 19.1 % (24.0-44.0); MEAN CORPUSCULAR VOLUME 93.6 fl (80.0-96.0); MONO # 0.6 10^3/uL (0.0-0.8); MONO % 6.4 % (2.0-8.0); NEUTROPHILS # 6.4 10^3/uL (1.5-8.5); NEUTROPHILS % 71.8 % (36.0-66.0); PLATELET COUNT, AUTOMATED 248 10^3/uL (150-450); RED BLOOD COUNT 4.67 10^6/uL (4.30-6.10)
[2022-07-29 17:35] LABS: ALBUMIN 3.9 G/DL (3.2-5.2); ALKALINE PHOSPHATASE 48 U/L (46-116); ALT/SGPT 19 U/L (7.0-40); AST/SGOT 17 U/L (<34); BILIRUBIN,TOTAL 0.4 MG/DL (0.3-1.2); BLOOD UREA NITROGEN 19 MG/DL (9-23); CARBON DIOXIDE LEVEL 34 MMOL/L (20-31); CHLORIDE LEVEL 104 MMOL/L (98-107); CHOLESTEROL LEVEL 148 MG/DL (<200); CHOLESTEROL RISK RATIO 3.28 (<5); CREATININE FOR GFR 1.06 MG/DL (0.70-1.30); GLOMERULAR FILTRATION RATE > 60.0 (>60); GLUCOSE, FASTING 89 MG/DL (60-100); HDL CHOLESTEROL 45.1 MG/DL (>40); LDL CHOLESTEROL 75.1 MG/DL (<100); NON-HDL-C 102.9 MG/DL; POTASSIUM SERUM 4.6 MMOL/L (3.5-5.1); SODIUM LEVEL 142 MMOL/L (136-145); TOTAL PROTEIN 7.3 G/DL (5.7-8.2); TRIGLYCERIDES LEVEL 139 MG/DL (<150)
[2022-07-29 17:37] LABS: FREE T4 1.05 NG/DL (0.89-1.76)
[2022-07-29 17:54] LABS: HEMOGLOBIN A1c 5.5 % (4.0-6.0)
== END ==
LOC: M WUC 13:41
PROVIDERS: ATTEND Nurse Practitioner Adult Health
DX: I10 Essential (primary) hypertension (principal); G47.33 Obstructive sleep apnea (adult) (pediatric)

== ENCOUNTER 2023-07-20 08:27 | Emergency (ER) | payer BC ==
[~2023-07-20] VITALS: Ht 185.4 cm; Wt 160.0 kg
[~2023-07-20 08:27] MED LIST changes: +DICL100G10 TOP; -DICL1GEL3 TOP; -ROSU20TA5 PO; +ROSU20TA61 PO
[2023-07-20 09:16] LABS: VENOUS BASE EXCESS 2.8 (-2.0-2.0); VENOUS HCO3 27.1 MMOL/L (23.0-27.0); VENOUS O2 SATURATION 43.1 % (60.0-80.0); VENOUS PARTIAL PRESSURE CO2 40.6 mmHg (38.0-50.0); VENOUS PARTIAL PRESSURE O2 22.1 mmHg (30.0-50.0); VENOUS PH 7.442 UNITS (7.330-7.430); VENOUS STANDARD HCO3 25.3 MMOL/L; VENOUS TOTAL CO2 28.3 MMOL/L (24.0-28.0)
[2023-07-20 09:22] LABS: BASO # 0.1 10^3/uL (0.0-0.2); BASO % 0.6 % (0.0-1.0); EOS # 0.2 10^3/uL (0.0-0.5); EOS % 1.7 % (0.0-3.0); HEMATOCRIT 46.4 % (42.0-52.0); HEMOGLOBIN 15.4 g/dl (13.5-17.5); LYMPH # 1.6 10^3/uL (1.5-5.0); LYMPH % 17.9 % (24.0-44.0); MEAN CORPUSCULAR HEMOGLOBIN 30.3 pg (27.0-33.0); MEAN CORPUSCULAR HGB CONC 33.2 g/dl (32.0-36.5); MEAN CORPUSCULAR VOLUME 91.2 fl (80.0-96.0); MONO # 0.6 10^3/uL (0.0-0.8); MONO % 7.2 % (2.0-8.0); NEUTROPHILS # 6.3 10^3/uL (1.5-8.5); PLATELET COUNT, AUTOMATED 254 10^3/uL (150-450); RED BLOOD COUNT 5.09 10^6/uL (4.30-6.10); WHITE BLOOD COUNT 8.7 10^3/uL (4.0-10.0)
[2023-07-20] MEDS ORDERED: ELIQ5TAB (09:25)
[2023-07-20] MEDS ORDERED: BUPR150T12 (09:25)
[2023-07-20 09:38] LABS: INR 1.11
[2023-07-20 09:46] LABS: LIPASE 32 U/L (12-53)
[2023-07-20 09:48] LABS: ALBUMIN 3.9 G/DL (3.2-5.2); ALKALINE PHOSPHATASE 50 U/L (46-116); ALT/SGPT 25 U/L (7.0-40); AST/SGOT 25 U/L (<34); BILIRUBIN,DIRECT 0.2 MG/DL (<0.4); BILIRUBIN,TOTAL 0.5 MG/DL (0.3-1.2); BLOOD UREA NITROGEN 20 MG/DL (9-23); CARBON DIOXIDE LEVEL 28 MMOL/L (20-31); CHLORIDE LEVEL 103 MMOL/L (98-107); CK-MB VALUE MASS 2.8 NG/ML (<3.6); CREATININE FOR GFR 1.22 MG/DL (0.70-1.30); GLOMERULAR FILTRATION RATE > 60.0 (>60); GLUCOSE, FASTING 99 MG/DL (60-100); POTASSIUM SERUM 4.2 MMOL/L (3.5-5.1); SODIUM LEVEL 137 MMOL/L (136-145); TOTAL PROTEIN 7.3 G/DL (5.7-8.2)
[2023-07-20 09:49] LABS: CPK CREATINE PHOSPHOKINASE 281 U/L (46-171); MB/CK RELATIVE INDEX 0.99 (< OR =4)
[2023-07-20] MEDS: ONDANSETRON 4MG 2ML VIAL IV ONE (10:12)
[2023-07-20 10:47] LABS: CK-MB VALUE MASS 2.5 NG/ML (<3.6)
[2023-07-20 10:48] LABS: MB/CK RELATIVE INDEX 0.84 (< OR =4)
[2023-07-20] MEDS ORDERED: ISOVUE-370 76% 100ML VIAL As Ordered ONE (10:59)
[2023-07-20] MEDS: METOCLOPRAMIDE INJ 10MG/2ML VIAL IV ONE (12:29)
[2023-07-20 14:30] VITALS: BP 165/77; TEMP 98.8; O2SAT 100
[2023-07-20] MEDS ORDERED: REGL10TA6 PO (14:30)
== END 2023-07-20 14:51 | disposition home or self-care (01) ==
LOC: M ED 08:27
DX: R11.2 Nausea with vomiting, unspecified (principal); K76.89 Other specified diseases of liver; I10 Essential (primary) hypertension; E78.5 Hyperlipidemia, unspecified; Z86.711 Personal history of pulmonary embolism; Z86.718 Personal history of other venous thrombosis and embolism; K57.92 Diverticulitis of intestine, part unspecified, without perforation or abscess without bleeding; Z79.899 Other long term (current) drug therapy
CPT/HCPCS: 71045; 71275; 76705; 80048; 80076; 82550; 82553; 82803; 83690; 83880; 84484; 85025; 85610; 87486; 87581; 87633; 87798; 93005; 93041; 94760; 96374; 96375; 99285; J2405; J2765; Q9967